=== PATIENT | female | born 1960 | race Caucasian/White ===

== ENCOUNTER → 2021-10-22 | Outpatient (CLI) | payer SELFPAY | LOC: M SOG 08:08 | PROVIDERS: ATTEND Orthopaedic Surgery Adult Reconstructive Orthopaedic Surgery | DX: M25.572 Pain in left ankle and joints of left foot (principal) ==

== ENCOUNTER → 2021-11-11 | Outpatient (CLI) | payer BC, OTHER ==
[~2021-11-11] MED LIST: ADV500INH INH; ASPI-551 PO; ATOR1TAB19 PO; BACL10TA2 PO; BUPR150T12 PO; CETI-24 PO; DOCU100C16 PO; FERR1TAB8 PO; FLUTISP; FURO40TA2 PO; INCR1INH PO; IPRA0.00 INH; METF10004 PO; MONT10TA97 PO; OMEP40CA5 PO; OXYC-517 PO; OZEM2INJ INJ; PROAAER10 INH; SYNT25TA PO; THERTAB52 PO; TRAM50TA2 PO; VITA100093 PO; VITA500T9 PO
== END ==
LOC: M SOG 15:39
PROVIDERS: ATTEND Orthopaedic Surgery Adult Reconstructive Orthopaedic Surgery
DX: S76.111D Strain of right quadriceps muscle, fascia and tendon, subsequent encounter (principal); M25.572 Pain in left ankle and joints of left foot; W18.30XD Fall on same level, unspecified, subsequent encounter; Y92.009 Unspecified place in unspecified non-institutional (private) residence as the place of occurrence of the external cause

== ENCOUNTER → 2022-01-13 | Outpatient (CLI) | payer BC, OTHER | LOC: M SOG 11:16 | PROVIDERS: ATTEND Orthopaedic Surgery Adult Reconstructive Orthopaedic Surgery | DX: S82.392D Other fracture of lower end of left tibia, subsequent encounter for closed fracture with routine healing (principal) ==

== ENCOUNTER → 2022-01-19 | Outpatient (CLI) | payer BC, OTHER | LOC: M PLAIMG 14:12 | PROVIDERS: ATTEND Orthopaedic Surgery Adult Reconstructive Orthopaedic Surgery | DX: S82.392D Other fracture of lower end of left tibia, subsequent encounter for closed fracture with routine healing (principal); W18.30XD Fall on same level, unspecified, subsequent encounter ==

== ENCOUNTER → 2022-02-18 | Outpatient (CLI) | payer BC, OTHER ==
[~2022-02-18] MED LIST changes: +ACET-1379 PO; +ADVI200T PO; +ALBU6.7H6 INH; +ERGO500029 PO; +LEVO25TA5 PO; +MULT400T10 PO; +MULTTAB61 PO
== END ==
LOC: M LABSMTC 11:05
PROVIDERS: ATTEND Anesthesiology
DX: Z01.818 Encounter for other preprocedural examination (principal); Z11.52 Encounter for screening for COVID-19

== ENCOUNTER 2022-02-23 12:09 | Observation (INO) | payer BC, OTHER ==
[~2022-02-23] VITALS: Ht 165.1 cm; Wt 117.4 kg
[~2022-02-23 12:09] MED LIST changes: +ACETAMINOPHEN 500 MG TAB PO ONE; +CelecoXIB 400 MG CAP PO ONE; +GABAPENTIN 300 MG CAP PO ONE; +ONDANSETRON 4MG 2ML VIAL IV ONE
[2022-02-23] MEDS ORDERED: MIDAZOLAM INJ 2MG/2ML VIAL As Ordered ONE (12:36)
[2022-02-23] MEDS ORDERED: LIDOCAINE 2% 100MG/5ML SDV (FOR ANES.) As Ordered ONE (12:36)
[2022-02-23] MEDS ORDERED: propofoL 200 MG/20 ML VIAL As Ordered ONE (12:36)
[2022-02-23] MEDS ORDERED: fentaNYL 100 MCG/2 ML INJECTION As Ordered ONE ×2 (12:36→16:26)
[2022-02-23] MEDS ORDERED: LR 1,000 ML IV SCH ×2 (12:40→16:45)
[2022-02-23] MEDS ORDERED: ceFAZolin SOD 2 GM in IV 1 EA IV ONE (12:40)
[2022-02-23] MEDS ORDERED: BUPIVACAINE/EPIN 0.5% 30ML VIAL As Ordered ONE (14:36)
[2022-02-23] MEDS ORDERED: ROCURONIUM BROMIDE 50MG/5ML VIAL As Ordered ONE (14:48)
[2022-02-23] MEDS ORDERED: ONDANSETRON 4MG 2ML VIAL As Ordered ONE (15:19)
[2022-02-23] MEDS ORDERED: METOCLOPRAMIDE INJ 10MG/2ML VIAL As Ordered ONE (15:19)
[2022-02-23] MEDS ORDERED: ceFAZolin 1GM VIAL As Ordered ONE (15:36)
[2022-02-23] MEDS ORDERED: MORPHINE 2 MG/ML 1ML VIAL IV PRN (16:45)
[2022-02-23] MEDS ORDERED: ONDANSETRON 4MG 2ML VIAL IV PRN ×2 (16:45→18:55)
[2022-02-23] MEDS ORDERED: METOCLOPRAMIDE INJ 10MG/2ML VIAL IV PRN (16:45)
[2022-02-23] MEDS: fentaNYL 100 MCG/2 ML INJECTION IV PRN ×4 (17:00→17:41)
[2022-02-23] MEDS: oxyCODONE 5MG TAB PO PRN ×2 (17:00→17:44)
[2022-02-23] MEDS ORDERED: PROMETHAZINE 25MG/ML 1ML VIAL IV PRN ×2 (18:10→18:55)
[2022-02-23] MEDS ORDERED: ACETAMINOPHEN TAB 650MG DOSE (2X325MG) PO PRN (18:55)
[2022-02-23] MEDS ORDERED: IPRATROPIUM 0.5MG/ALBUTEROL 2.5MG INH SOL UD 3ML (DUONEB) INH PRN (18:55)
[2022-02-23] MEDS ORDERED: GLUCAGON INJ 1MG VIAL SC PRN (19:00)
[2022-02-23] MEDS ORDERED: DEXTROSE 50% 50ML SYRINGE IV PRN (19:00)
[2022-02-23] MEDS ORDERED: GLUCOSE 4GM CHEW TABLET PO PRN (19:00)
[2022-02-23 20:00] VITALS: BP 130/80; O2SAT 94
[2022-02-23] MEDS: MORPHINE 2 MG/ML 1ML VIAL IV PRN (20:32)
[2022-02-23 20:46] VITALS: BP 142/82
[2022-02-23] MEDS: INSULIN LISPRO (NovoLOG) PER UNIT SC SCH (21:00)
[2022-02-23 21:40] VITALS: BP 128/72
[2022-02-23 22:43] VITALS: BP 128/78
[2022-02-23] MEDS: PERCOCET 5MG/325MG TAB PO PRN (22:58)
[2022-02-23 23:45] VITALS: BP 134/82
[2022-02-24] MEDS ORDERED: FERR1TAB8 PO (00:52)
[2022-02-24] MEDS ORDERED: IPRA0.00 INH (00:52)
[2022-02-24] MEDS ORDERED: ASPI-161 PO (00:52)
[2022-02-24] MEDS ORDERED: HOME MED LIST COMPLETE! XX SCH (00:55)
[2022-02-24] MEDS: MONTELUKAST 10 MG TAB PO SCH ×2 (01:08→20:40)
[2022-02-24] MEDS: ASPIRIN 81MG ENTERIC TABLET PO SCH ×3 (01:08→20:40)
[2022-02-24] MEDS ORDERED: LR 1,000 ML IV SCH (03:25)
[2022-02-24] MEDS: MORPHINE 2 MG/ML 1ML VIAL IV PRN ×2 (03:31→06:39)
[2022-02-24 03:59] VITALS: BP 128/76
[2022-02-24] MEDS: LEVOTHYROXINE 25MCG TABLET (0.025MG) PO SCH (05:14)
[2022-02-24] MEDS: PERCOCET 5MG/325MG TAB PO PRN ×3 (05:15→17:48)
[2022-02-24 05:58] LABS: HEMATOCRIT 32.5 % (36.0-47.0); HEMOGLOBIN 10.9 g/dl (12.0-15.5); MEAN CORPUSCULAR HEMOGLOBIN 30.5 pg (27.0-33.0); MEAN CORPUSCULAR HGB CONC 33.5 g/dl (32.0-36.5); PLATELET COUNT, AUTOMATED 229 10^3/uL (150-450); RED BLOOD COUNT 3.57 10^6/uL (4.00-5.40); WHITE BLOOD COUNT 7.5 10^3/uL (4.0-10.0)
[2022-02-24 06:41] LABS: BLOOD UREA NITROGEN 20 MG/DL (9-23); CALCIUM LEVEL 8.7 MG/DL (8.3-10.6); CARBON DIOXIDE LEVEL 28 MMOL/L (20-31); CHLORIDE LEVEL 104 MMOL/L (98-107); CREATININE FOR GFR 0.92 MG/DL (0.55-1.30); GLOMERULAR FILTRATION RATE > 60.0 (>45); GLUCOSE, FASTING 92 MG/DL (74-106); POTASSIUM SERUM 4.2 MMOL/L (3.5-5.1); SODIUM LEVEL 141 MMOL/L (136-145)
[2022-02-24] MEDS: ADVAIR HFA 230/21MCG INHALER INH SCH ×2 (07:12→20:39)
[2022-02-24] MEDS: TIOTROPIUM INHALER/CAPSULE (SPIRIVA) INH SCH (07:12)
[2022-02-24] MEDS: INSULIN LISPRO (NovoLOG) PER UNIT SC SCH ×4 (07:30→21:00)
[2022-02-24] MEDS: CETIRIZINE (ZyrTEC) 10 MG TAB PO SCH (09:33)
[2022-02-24] MEDS: OMEPRAZOLE 20MG CAP PO SCH (09:33)
[2022-02-24] MEDS: FLUTICASONE PROP 0.05% NASAL SPRAY 16 GM (FLONASE) SCH (09:34)
[2022-02-24] MEDS: FERROUS SULFATE 325MG TAB PO SCH (09:34)
[2022-02-24] MEDS: ATORVASTATIN 10 MG TAB PO SCH (09:34)
[2022-02-24] MEDS: buPROPion **XL** TABLET 150MG (WELLBUTRIN XL) PO SCH (09:34)
[2022-02-24] MEDS ORDERED: PERCOCET PO (10:13)
[2022-02-24 10:14] LABS: ABG HCO3 26.5 MEQ/L (22.0-26.0); ABG O2 SATURATION 94.3 % (95.0-99.0); ABG PARTIAL PRESSURE CO2 40.6 mmHg (35.0-45.0); ABG PARTIAL PRESSURE O2 70.9 mmHg (75.0-100.0); ABG STANDARD HCO3 26.2 MEQ/L (22.0-26.0); ABG TOTAL CO2 27.7 MEQ/L (23.0-31.0); ABG pH (ARTERIAL) 7.432 UNITS (7.350-7.450)
[2022-02-24] MEDS ORDERED: KETOROLAC 30 MG/ML 1ML VIAL IV ONE (10:40)
[2022-02-24 14:00] VITALS: BP 130/78
[2022-02-24 20:56] VITALS: BP 118/72
[2022-02-24] MEDS: KETOROLAC 30 MG/ML 1ML VIAL IV SCH (21:42)
[2022-02-24 22:00] VITALS: O2SAT 93
[2022-02-25] MEDS: PERCOCET 5MG/325MG TAB PO PRN ×3 (00:15→12:46)
[2022-02-25] MEDS: KETOROLAC 30 MG/ML 1ML VIAL IV SCH ×2 (03:57→09:29)
[2022-02-25] MEDS: LEVOTHYROXINE 25MCG TABLET (0.025MG) PO SCH (05:44)
[2022-02-25 06:00] VITALS: BP 118/70
[2022-02-25] MEDS: INSULIN LISPRO (NovoLOG) PER UNIT SC SCH ×2 (07:30→12:00)
[2022-02-25] MEDS: TIOTROPIUM INHALER/CAPSULE (SPIRIVA) INH SCH (08:04)
[2022-02-25] MEDS: ADVAIR HFA 230/21MCG INHALER INH SCH (08:04)
[2022-02-25] MEDS: OMEPRAZOLE 20MG CAP PO SCH (09:29)
[2022-02-25] MEDS: ASPIRIN 81MG ENTERIC TABLET PO SCH (09:29)
[2022-02-25] MEDS: CETIRIZINE (ZyrTEC) 10 MG TAB PO SCH (09:29)
[2022-02-25] MEDS: FERROUS SULFATE 325MG TAB PO SCH (09:29)
[2022-02-25] MEDS: FLUTICASONE PROP 0.05% NASAL SPRAY 16 GM (FLONASE) SCH (09:30)
[2022-02-25] MEDS: buPROPion **XL** TABLET 150MG (WELLBUTRIN XL) PO SCH (09:30)
[2022-02-25] MEDS: ATORVASTATIN 10 MG TAB PO SCH (09:30)
[2022-02-25] MEDS ORDERED: DOXY100T PO (16:11)
[2022-02-25] MEDS ORDERED: ALBU8.5H INH (16:11)
== END 2022-02-25 14:00 | disposition home health service (06) ==
LOC: M SDC 12:09 → M MS5PR 19:50
PROVIDERS: ADMIT Internal Medicine; ATTEND Orthopaedic Surgery Adult Reconstructive Orthopaedic Surgery
DX: S93.422D Sprain of deltoid ligament of left ankle, subsequent encounter (principal); J95.821 Acute postprocedural respiratory failure; G47.33 Obstructive sleep apnea (adult) (pediatric); R11.2 Nausea with vomiting, unspecified; M53.3 Sacrococcygeal disorders, not elsewhere classified; E11.9 Type 2 diabetes mellitus without complications; I10 Essential (primary) hypertension; J45.909 Unspecified asthma, uncomplicated; J44.9 Chronic obstructive pulmonary disease, unspecified; E03.9 Hypothyroidism, unspecified; E78.5 Hyperlipidemia, unspecified; F32.A Depression, unspecified; K21.9 Gastro-esophageal reflux disease without esophagitis; D50.9 Iron deficiency anemia, unspecified; Z79.899 Other long term (current) drug therapy; Z79.890 Hormone replacement therapy; Z79.82 Long term (current) use of aspirin; Z79.84 Long term (current) use of oral hypoglycemic drugs; Z79.51 Long term (current) use of inhaled steroids
CPT/HCPCS: 27698; 36415; 36600; 76000; 80048; 82140; 82803; 85027; 94640; 96374; 96375; 96376; 97161; 97530; C1713; J0690; J1815; J1885; J2250; J2270; J2405; J2550; J2765; J3010; S0020

== ENCOUNTER → 2022-04-22 | Outpatient (CLI) | payer BC, OTHER ==
[~2022-04-22] MED LIST changes: -ACETAMINOPHEN 500 MG TAB PO ONE; +ALBU8.5H INH; +ASPI-161 PO; -CelecoXIB 400 MG CAP PO ONE; +DOXY100T PO; -GABAPENTIN 300 MG CAP PO ONE; -ONDANSETRON 4MG 2ML VIAL IV ONE; +PERCOCET PO
== END ==
LOC: M RAD 13:12
PROVIDERS: ATTEND Physician Assistant
DX: Z87.891 Personal history of nicotine dependence (principal)

== ENCOUNTER → 2022-09-15 | Outpatient (CLI) | payer BC, OTHER ==
[~2022-09-15] MED LIST changes: +FLUT50SP17; -FLUTISP
== END ==
LOC: M SOG 08:11
PROVIDERS: ATTEND Orthopaedic Surgery
DX: M25.561 Pain in right knee (principal); M25.572 Pain in left ankle and joints of left foot

== ENCOUNTER → 2022-09-22 | Outpatient (CLI) | payer BC, OTHER | LOC: M RAD 16:06 | PROVIDERS: ATTEND Orthopaedic Surgery | DX: M25.572 Pain in left ankle and joints of left foot (principal) ==

== ENCOUNTER → 2022-09-29 | Outpatient (CLI) | payer BC, OTHER | LOC: M SOG 10:12 | PROVIDERS: ATTEND Orthopaedic Surgery | DX: M25.572 Pain in left ankle and joints of left foot (principal); M24.272 Disorder of ligament, left ankle ==

== ENCOUNTER → 2023-01-27 | Outpatient (CLI) | payer MEDICARE, BC, OTHER | LOC: M SOG 07:53 | PROVIDERS: ATTEND Physician Assistant | DX: M25.531 Pain in right wrist (principal) ==

== ENCOUNTER → 2025-03-06 | Outpatient (CLI) | payer MEDICARE, OTHER ==
[~2025-03-06] MED LIST changes: -ADV500INH INH; +ADVA1AER10 INH; -ASPI-161 PO; +ASPI-615 PO; -FLUT50SP17; +FLUTISP
== END ==
LOC: M SOG 07:49
PROVIDERS: ATTEND Physician Assistant
DX: M19.041 Primary osteoarthritis, right hand (principal); M19.042 Primary osteoarthritis, left hand; M79.641 Pain in right hand; M79.642 Pain in left hand